=== PATIENT | female | born 1995 | race Caucasian/White ===

== ENCOUNTER 2018-10-20 21:17 | Emergency (ER) | payer OTHER ==
[~2018-10-20] VITALS: Ht 167.6 cm; Wt 106.6 kg
[~2018-10-20 21:17] MED LIST: CAND4; ENOX60I; HYDACE5 PO; LANS15EC; LISI10; LOSA25 PO; LOSA50 PO; MULVITMINE PO; MYCO250; PREDNISONE; PROM25S PR; PROM6.25SY PO; RANI150
[2018-10-20] MEDS ORDERED: SERT50 PO (21:55)
[2018-10-21] MEDS ORDERED: Bactrim Ds Tab1 EACH PO (00:42)
[2018-10-21] MEDS ORDERED: CEPH500 PO (00:42)
== END 2018-10-21 01:06 | disposition home or self-care (01) ==
LOC: ER 21:17
DX: L02.211 Cutaneous abscess of abdominal wall (principal); L03.311 Cellulitis of abdominal wall; R11.2 Nausea with vomiting, unspecified; Z79.899 Other long term (current) drug therapy
CPT/HCPCS: 10060; 99283-25; A9270-GY; J2405

== ENCOUNTER → 2019-01-25 | Outpatient (CLI) | payer OTHER ==
[~2019-01-25] MED LIST changes: +Bactrim Ds Tab1 EACH PO; +CEPH500 PO; +SERT50 PO
== END | disposition home or self-care (01) ==
LOC: LAB SHORT 17:42 → LAB 17:42
DX: A49.01 Methicillin susceptible Staphylococcus aureus infection, unspecified site (principal)
CPT/HCPCS: 87081

== ENCOUNTER → 2022-02-07 | Outpatient (CLI) | payer OTHER ==
[~2022-02-07] MED LIST changes: +IBUP800 PO; +LABE200 PO; +ONDA4 PO; +PRENATAL TABLE1 EAC2 PO; +Prevacid15 M2 PO
[2022-02-07 15:23] LABS: BASOPHILS ABSOLUTE AUTO 0.08 K/mm3 (0.00-0.23); BASOPHILS PERCENT AUTO 1 % (0-2); EOSINOPHILS ABSOLUTE AUTO 0.37 K/mm3 (0.00-0.68); EOSINOPHILS PERCENT AUTO 4 % (0-6); Hematocrit 42.6 % (33.0-51.0); Hemoglobin 14.1 g/dL (11.5-16.0); IMMATURE GRAN ABSOLUTE AUTO 0.02 K/mm3 (0.00-0.10); IMMATURE GRAN PERCENT AUTO 0 % (0-1); LYMPHOCYTES ABSOLUTE AUTO 2.05 K/mm3 (0.84-5.20); LYMPHOCYTES PERCENT AUTO 22 % (21-46); MONOCYTES ABSOLUTE AUTO 0.72 K/mm3 (0.16-1.47); MONOCYTES PERCENT AUTO 8 % (4-13); Mean Corpuscular HGB 27.3 pg (26.0-34.0); Mean Corpuscular HGB Conc 33.1 g/dL (31.5-36.5); Mean Corpuscular Volume 83 fL (80-100); NEUTROPHILS ABSOLUTE AUTO 6.12 K/mm3 (1.96-9.15); NEUTROPHILS PERCENT AUTO 65 % (41-73); Platelet Count 352 K/mm3 (150-400); RDW Standard Deviation 42.3 fL (35.1-46.3); Red Blood Cell Count 5.16 M/mm3 (3.80-5.20); White Blood Cell Count 9.36 K/mm3 (4.00-11.30)
[2022-02-07 15:32] LABS: Albumin, Blood 4.2 g/dL (3.4-5.0); Albumin/Globulin Ratio 0.9 (0.8-1.8); Bilirubin, Total 0.5 mg/dL (0.1-1.0); Bun/Creatinine Ratio 10.7 (12.0-20.0); Calcium, Blood 8.9 mg/dL (8.5-10.1); Creatinine, Blood 0.84 mg/dL (0.40-1.00); Globulin, Blood 4.5 g/dL (2.2-4.0); Potassium, Blood 3.8 mmol/L (3.5-5.5); Total Protein, Blood 8.7 g/dL (6.4-8.2); Uric Acid, Blood 5.6 mg/dL (2.6-6.0)
== END | disposition home or self-care (01) ==
LOC: LAB 15:15 → LAB SHORT 15:15
PROVIDERS: Chiropractor
DX: N18.9 Chronic kidney disease, unspecified (principal)
CPT/HCPCS: 80053; 84550; 85025

== ENCOUNTER 2023-07-30 20:02 | Emergency (ER) | payer OTHER ==
[~2023-07-30] VITALS: Ht 170.2 cm; Wt 108.9 kg
[2023-07-30] MEDS ORDERED: NS 1,000 ML IV SCH (20:45)
[2023-07-30] MEDS ORDERED: Ondansetron HCl 2 MG / ML 2ML Vial IV ONE (20:45)
[2023-07-30 20:52] LABS: BASOPHILS ABSOLUTE AUTO 0.06 K/mm3 (0.00-0.23); BASOPHILS PERCENT AUTO 0 % (0-2); EOSINOPHILS ABSOLUTE AUTO 0.11 K/mm3 (0.00-0.68); EOSINOPHILS PERCENT AUTO 1 % (0-6); Hematocrit 36.5 % (33.0-51.0); Hemoglobin 12.4 g/dL (11.5-16.0); IMMATURE GRAN ABSOLUTE AUTO 0.09 K/mm3 (0.00-0.10); IMMATURE GRAN PERCENT AUTO 1 % (0-1); LYMPHOCYTES ABSOLUTE AUTO 1.89 K/mm3 (0.84-5.20); LYMPHOCYTES PERCENT AUTO 12 % (21-46); MONOCYTES ABSOLUTE AUTO 0.67 K/mm3 (0.16-1.47); MONOCYTES PERCENT AUTO 4 % (4-13); Mean Corpuscular HGB 29.7 pg (26.0-34.0); Mean Corpuscular Volume 88 fL (80-100); Mean Platelet Volume 9.1 fL (9.1-12.4); NEUTROPHILS ABSOLUTE AUTO 12.89 K/mm3 (1.96-9.15); NEUTROPHILS PERCENT AUTO 82 % (41-73); Platelet Count 340 K/mm3 (150-400); RDW Standard Deviation 44.3 fL (35.1-46.3); Red Blood Cell Count 4.17 M/mm3 (3.80-5.20); White Blood Cell Count 15.71 K/mm3 (4.00-11.30)
[2023-07-30 21:11] LABS: Albumin, Blood 3.4 g/dL (3.4-5.0); Albumin/Globulin Ratio 0.7 (0.8-1.8); Bilirubin, Total 0.5 mg/dL (0.1-1.0); Bun/Creatinine Ratio 10.8 (12.0-20.0); Calcium, Blood 9.6 mg/dL (8.5-10.1); Creatinine, Blood 0.46 mg/dL (0.40-1.00); Globulin, Blood 4.6 g/dL (2.2-4.0); Potassium, Blood 3.9 mmol/L (3.5-5.5)
[2023-07-30] MEDS ORDERED: ONDA4ODT MM (21:34)
[2023-07-30 22:40] VITALS: BP 124/65
== END 2023-07-30 22:40 ==
LOC: ER 20:02
PROVIDERS: Emergency Medicine
DX: O21.2 Late vomiting of pregnancy (principal); Z3A.26 26 weeks gestation of pregnancy
CPT/HCPCS: 80053; 85025; 96374; 99284-25; J2405; J7030

== ENCOUNTER → 2024-04-22 | Outpatient (CLI) | payer OTHER ==
[~2024-04-22] MED LIST changes: +ASPI81CH PO; +ENOX60I SC; +METF500 PO; +NOVOLIN 70100 UNIT/3 SC; +ONDA4ODT MM
[2024-04-22 13:29] LABS: Protein, Urine Quantitative 18.7 mg/dL (0.0-11.9)
== END ==
LOC: LAB SHORT 11:44 → LAB 11:44
PROVIDERS: Advanced Practice Midwife
DX: Z87.448 Personal history of other diseases of urinary system (principal)
CPT/HCPCS: 81050; 84156

== ENCOUNTER → 2024-06-27 | Outpatient (CLI) | payer OTHER | LOC: LAB 17:35 → LAB SHORT 17:35 | DX: Z34.83 Encounter for supervision of other normal pregnancy, third trimester (principal) ==

== ENCOUNTER 2024-09-06 06:30 | Inpatient (IN) | payer OTHER ==
[2024-09-06] VITALS (55 sets, daily range): BP systolic 112–158; BP diastolic 58–82
[~2024-09-06] VITALS: Ht 170.2 cm; Wt 113.6 kg
[2024-09-06] MEDS ORDERED: Carboprost Tromethamine 250 MCG/ML 1ML Amp IM PRN ×2 (09:40→18:55)
[2024-09-06] MEDS ORDERED: Ondansetron HCl 2 MG / ML 2ML Vial IV PRN (09:40)
[2024-09-06] MEDS ORDERED: FentaNYL 2mcg/ml-Bup 0.1% Epd 250 ML EPI PRN (09:40)
[2024-09-06] MEDS ORDERED: ePHEDrine Sulfate 50 MG/ML 1ML Injection XX PRN (09:40)
[2024-09-06] MEDS ORDERED: Oxytocin 10 Unit / ML Vial IM PRN (09:40)
[2024-09-06] MEDS ORDERED: OXYTOCIN/RINGER'S LACTATE 500 ML IV PRN (09:40)
[2024-09-06] MEDS ORDERED: Methylergonovine Maleate 0.2MG / ML 1ML Amp IM PRN ×2 (09:40→18:55)
[2024-09-06] MEDS ORDERED: METF500C PO (09:41)
[2024-09-06] MEDS ORDERED: INSULIN GL300 UNIT/1 SC (09:42)
[2024-09-06] MEDS ORDERED: Tranexamic Acid 100 ML IV SCH (09:50)
[2024-09-06 10:10] LABS: BASOPHILS ABSOLUTE AUTO 0.05 K/mm3 (0.00-0.23); BASOPHILS PERCENT AUTO 1 % (0-2); EOSINOPHILS ABSOLUTE AUTO 0.13 K/mm3 (0.00-0.68); EOSINOPHILS PERCENT AUTO 1 % (0-6); Hematocrit 30.2 % (33.0-51.0); Hemoglobin 9.9 g/dL (11.5-16.0); IMMATURE GRAN ABSOLUTE AUTO 0.04 K/mm3 (0.00-0.10); IMMATURE GRAN PERCENT AUTO 0 % (0-1); LYMPHOCYTES ABSOLUTE AUTO 1.95 K/mm3 (0.84-5.20); LYMPHOCYTES PERCENT AUTO 19 % (21-46); MONOCYTES ABSOLUTE AUTO 0.58 K/mm3 (0.16-1.47); MONOCYTES PERCENT AUTO 6 % (4-13); Mean Corpuscular HGB Conc 32.8 g/dL (31.5-36.5); Mean Corpuscular Volume 80 fL (80-100); NEUTROPHILS ABSOLUTE AUTO 7.31 K/mm3 (1.96-9.15); NEUTROPHILS PERCENT AUTO 73 % (41-73); NRBC ABSOLUTE 0.00 K/mm3 (0.00-0.02); NRBC Auto 0.0 /100 WBC (0.0-0.2); Platelet Count 225 K/mm3 (150-400); RDW Coefficient Variation 14.4 % (11.7-14.2); RDW Standard Deviation 41.6 fL (35.1-46.3)
[2024-09-06] MEDS ORDERED: ePHEDrine Sulfate 50 MG/ML 1ML Injection IV PRN ×2 (11:55)
[2024-09-06] MEDS ORDERED: Bupivacaine 0.75%/Dext 8.25% 2 ML Amp IT ONE ×2 (15:30→17:26)
[2024-09-06] MEDS ORDERED: OXYTOCIN/RINGER'S LACTATE 500 ML IV ONE (18:55)
[2024-09-06] MEDS ORDERED: Benzocaine Topical Anesthetic Spray 60GM TOP PRN (18:55)
[2024-09-06] MEDS ORDERED: Witch Hazel/Glycerin PADS TOP PRN (18:55)
[2024-09-06] MEDS ORDERED: OxyCODONE 5 mg/Acetamin 325 mg TABLET PO PRN (18:55)
--- NOTE | 2024-09-06 21:31 | NUR ---
1930 fundal check missed due to care of babies blood sugar being low.
--- NOTE | 2024-09-06 21:34 | NUR ---
DR. AGUILAR ANETHESIOLOGEST IN TO SEE PT. REMOVED SPINAL CATHETER AT 2024. ENCOURAGED PT TO STAY FLAT MUCH POSSIBLE TO DEMINISH LIKELYHOOOD OF DEVELOPING HEADACHE FROM CATHETER REMOVEL. PATIENT REPORTS SHE HAS HAD A HEADACHE SINCE ADMISSION THIS A.M. DR. AGUILAR INFORMED OR NORMAL RECOVERY PROCEDURE FOR MOTHER'S IN L&D. STATES IT IS OKAY FOR PT TO GET UP BUT SHOULD RETURN TO BE SOON POSSIBLE. PATIENT IN AGREEMENT NOT TO SHOWER FOR FOUR HOURS RECOMM[address]ED BY DR. AGUILAR. DR. AGUILAR STATES IT IS OKAY TO PT TO RECEIVE TORADOL POST FOR PAIN CONTROL. LOVENOX SHOULD NOT BE STARTED FOR 12 HOURS AFTER CATHETER REMOVED. Logan BRUNO AWARE LOVENOX START MUST BE DELAYED FOR 12 HOURS.
[2024-09-07] MEDS ORDERED: Ketorolac Tromethamine 30mg Vial IV SCH
[2024-09-07] MEDS ORDERED: Enoxaparin 40 MG/0.4 ML SYR SC SCH ×2 (00:30→09:00)
[2024-09-07 04:11] VITALS: BP 142/85
[2024-09-07 05:22] LABS: Hematocrit 29.1 % (33.0-51.0); Hemoglobin 9.6 g/dL (11.5-16.0); Mean Corpuscular HGB Conc 33.0 g/dL (31.5-36.5); Mean Corpuscular Volume 80 fL (80-100); NRBC ABSOLUTE 0.00 K/mm3 (0.00-0.02); NRBC Auto 0.0 /100 WBC (0.0-0.2); Platelet Count 192 K/mm3 (150-400); RDW Coefficient Variation 14.6 % (11.7-14.2); RDW Standard Deviation 41.9 fL (35.1-46.3)
[2024-09-07 05:36] LABS: Glucose, Blood 121 mg/dL (70-99)
[2024-09-07 08:06] VITALS: BP 139/86
--- NOTE | 2024-09-07 08:22 | NUR ---
PT DOING WELL THIS AM, DENIES ANY HEADACHE OR PAIN FROM EPIDURAL SITE. WILL NOTIFY THIS RN IF SHE STARTS TO DEVELOP ANY HEADACHE OR ANY FUNKY SYMPTOMS TODAY.
[2024-09-07] MEDS ORDERED: Prenatal Vit/FE Fumarate/FA 1 Tab PO SCH (09:00)
[2024-09-07 11:07] VITALS: BP 120/85
[2024-09-07 15:19] VITALS: BP 137/81
--- NOTE | 2024-09-07 15:23 | NUR ---
pt states she does not want to breastfeed anymore and requests to feed baby formula. formula given per request and educated on use.
[2024-09-07] MEDS ORDERED: Acetaminophen650 M1 PO (16:36)
[2024-09-07] MEDS ORDERED: DOCU100 PO (16:36)
[2024-09-07] MEDS ORDERED: ENOX40I SC (16:36)
[2024-09-07] MEDS ORDERED: IBUP800 PO (16:37)
--- NOTE | 2024-09-07 19:24 | NUR ---
EPDS SCORE 11 PT WAS ROUNDED ON BY IN HOUSE CARE MANAGEMENT AND WAS CLEARED FOR DISCHARGE TODAY.
[2024-09-07 19:36] VITALS: BP 124/78
--- NOTE | 2024-09-07 20:12 | NUR ---
WRITTEN AND VERBAL D/C INSTRUCTIONS PROVIDED, F/U APPT MADE FOR SATURDAY 09/09 @ 1300, PT DENIES QUESTIONS OR CONCERNS. PT LEFT OB UNIT IN GOOD CONDITION@ 1956 ACCOMPANIED BY FOB CARRYING INFANT IN CAR SEAT AND [facility] STAFF [place]ERVA AND LEFT IN PERSONAL VEHICLE.
== END 2024-09-07 19:50 | disposition home or self-care (01) | DRG 807 ==
LOC: OBS 06:30 → BC 06:36 → OBS 09:24 → BC 09:24
PROVIDERS: ADMIT Advanced Practice Midwife
PROC: 10E0XZZ Delivery of Products of Conception, External Approach (ICD-10-PCS; principal; 2024-09-06)
PROC: 4A1HXCZ Monitoring of Products of Conception, Cardiac Rate, External Approach (ICD-10-PCS; 2024-09-06)
PROC: 10907ZC Drainage of Amniotic Fluid, Therapeutic from Products of Conception, Via Natural or Artificial Opening (ICD-10-PCS; 2024-09-06)
DX: O24.424 Gestational diabetes mellitus in childbirth, insulin controlled (principal); Z37.0 Single live birth; O99.02 Anemia complicating childbirth; Z3A.38 38 weeks gestation of pregnancy; Z86.718 Personal history of other venous thrombosis and embolism; O99.214 Obesity complicating childbirth
CPT/HCPCS: 36415; 51702; 59025; 81003; 82947; 85025; 85027; 86850; 86900; 86901; 99214; A9270; J1650; J1885; J2405; J7120